=== PATIENT | female | born 1985 | race Caucasian/White ===

== ENCOUNTER 2016-09-28 18:40 | Emergency (ER) | payer OTHER ==
[~2016-09-28] VITALS: Ht 157.5 cm; Wt 56.8 kg
[~2016-09-28 18:40] MED LIST: ALBU8.5H IH
[2016-09-28] MEDS ORDERED: ONDANSETRON HCL 4 MG/2 ML VIAL IM ONE (19:30)
[2016-09-28] MEDS ORDERED: MORPHINE SULFATE 4 MG/ML SYRINGE IM ONE (19:30)
[2016-09-28] MEDS: ONDANSETRON HCL 4 MG/2 ML VIAL IVP ONE ×2 (19:42→20:46)
[2016-09-28] MEDS: MORPHINE SULFATE 4 MG/ML SYRINGE IVP ONE ×2 (19:42→20:46)
[2016-09-28] MEDS ORDERED: SODIUM CHLORIDE 0.9% 1,000 ML IV ONE (19:45)
[2016-09-28] MEDS ORDERED: CYCLOBENZAPRINE HCL 10 MG TABLET PO ONE (22:45)
[2016-09-28 22:52] VITALS: BP 117/69
== END 2016-09-28 22:55 | disposition home or self-care (01) ==
LOC: EMS 18:43
DX: M54.5 Low back pain (principal); M54.2 Cervicalgia; R51 Headache; F17.210 Nicotine dependence, cigarettes, uncomplicated; J45.909 Unspecified asthma, uncomplicated; F12.90 Cannabis use, unspecified, uncomplicated; F19.90 Other psychoactive substance use, unspecified, uncomplicated; V43.62XA Car passenger injured in collision with other type car in traffic accident, initial encounter; Y93.89 Activity, other specified; Y92.89 Other specified places as the place of occurrence of the external cause; Y99.8 Other external cause status
CPT/HCPCS: 70450; 71010; 72125; 72128; 72131; 81025; 96361; 96374; 96375; 99285; 99406; J2270; J2405; J7030

== ENCOUNTER 2017-05-14 22:11 | Emergency (ER) | payer OTHER ==
[~2017-05-14] VITALS: Ht 157.5 cm; Wt 72.0 kg
[~2017-05-14 22:11] MED LIST changes: -ALBU8.5H IH; +ALBU8.5H8 IH
[2017-05-14] MEDS ORDERED: ALBUTEROL SULFATE 5 MG/ML 20 ML NEB SOLN [BULK] NEB ONE (22:30)
[2017-05-14] MEDS ORDERED: IPRATROPIUM BROMIDE 0.5 MG/2.5 ML NEB SOLUTION NEB ONE (22:56)
[2017-05-14] MEDS ORDERED: 0.9% SODIUM CHLORIDE 5 ML NEB SOLUTION NEB ONE (22:56)
[2017-05-15] MEDS ORDERED: PredniSONE 20 MG TABLET PO ONE (01:00)
[2017-05-15] MEDS ORDERED: OSELTAMIVIR PHOSPHATE 75 MG CAPSULE PO ONE (01:00)
[2017-05-15 01:06] VITALS: BP 120/74
== END 2017-05-15 01:08 | disposition home or self-care (01) ==
LOC: EMS 22:12
DX: J45.909 Unspecified asthma, uncomplicated (principal); B34.9 Viral infection, unspecified; F12.10 Cannabis abuse, uncomplicated; F15.10 Other stimulant abuse, uncomplicated
CPT/HCPCS: 94644; 99285; J7512; J7611